=== PATIENT | male | born 1985 | race Caucasian/White ===

== ENCOUNTER 2022-04-09 23:44 | Observation (INO) | payer BC ==
[~2022-04-09] VITALS: Ht 175.3 cm; Wt 72.1 kg
[2022-04-10 00:46] LABS: HEMOGLOBIN 14.4 gm/dl (14.0-17.5); RED BLOOD COUNT 4.78 M/UL (4.20-5.50); WHITE BLOOD COUNT 9.7 K/UL (4.5-11.0)
[2022-04-10 01:25] LABS: BUN/CREATININE RATIO 8 (0-10)
[2022-04-10] MEDS ORDERED: LEVOTHYROXINE137 MCG PO (04:48)
[2022-04-10] MEDS ORDERED: NORVASC2.5 MG PO (04:49)
[2022-04-10] MEDS ORDERED: CLARITIN10 MG PO (04:50)
[2022-04-10] MEDS ORDERED: CEPHALEXIN250 MG/5 M PO (10:08)
[2022-04-10] MEDS ORDERED: DIPHENHYDRAMINE50 M1 PO (10:10)
--- NOTE | 2022-04-10 18:14 | NUR ---
PHARMACY TECHNICIAN INFUSION CALLED TO [facility] FOR AM
[2022-04-11 03:11] LABS: HEMOGLOBIN 14.5 gm/dl (14.0-17.5); RED BLOOD COUNT 4.81 M/UL (4.20-5.50)
[2022-04-11 03:50] LABS: BUN/CREATININE RATIO 8 (0-10)
[2022-04-11] MEDS ORDERED: ASPIRIN EC81 MG PO (11:37)
[2022-04-11] MEDS ORDERED: CRESTOR 10 MG T10 MG PO (11:37)
[2022-04-11] MEDS ORDERED: VALSARTAN80 MG PO (11:37)
[2022-04-11] MEDS ORDERED: LOPRESSOR 25 MG25 MG PO (11:37)
[2022-04-11] MEDS ORDERED: NITROGLYCERIN0.4 MG SL (11:40)
--- NOTE | 2022-04-11 15:22 | NUR ---
PT RETURNED FROM THE RESERVATION MANAGER AT APPROXIMATELY 1100. AIR TAKEN FORM THE CUFF ACCORDING TO PAPER REQUIREMENTS. REFER TO THE FORM IN THE CHART FOR DEYTAILED AIR REMOVAL. PT IS A7O X4 AND IN NO DISTRESS.
== END 2022-04-11 14:03 | disposition home or self-care (01) ==
LOC: ER1 23:44 → CCU 04-10 02:40 → CDU 04-10 02:40 → CCU 04-10 04:33 → M/S 04-10 14:46
PROVIDERS: Family Medicine; ADMIT Internal Medicine
DX: R07.89 Other chest pain (principal); I10 Essential (primary) hypertension; E78.5 Hyperlipidemia, unspecified; R06.02 Shortness of breath; R00.2 Palpitations; E03.9 Hypothyroidism, unspecified; Z86.16 Personal history of COVID-19
CPT/HCPCS: ECHO; 36415; 71045; 78452; 80048; 80053; 80061; 82533; 82550; 82553; 82607; 83036; 83735; 83880; 84439; 84443; 84484; 85025; 93005; 93017; 93306; 94664; 94760; 99152; 99285; A9502; C1769; C1887; C1894; G0378; J1644; J2250; J2785; J3010; Q9967

== ENCOUNTER 2022-05-16 16:12 | Emergency (ER) | payer BC ==
[~2022-05-16 16:12] MED LIST: ASPIRIN EC81 MG PO; CEPHALEXIN250 MG/5 M PO; CLARITIN10 MG PO; CRESTOR 10 MG T10 MG PO; DIPHENHYDRAMINE50 M1 PO; LEVOTHYROXINE137 MCG PO; LOPRESSOR 25 MG25 MG PO; NITROGLYCERIN0.4 MG SL; NORVASC2.5 MG PO; VALSARTAN80 MG PO
[2022-05-16 16:41] LABS: HEMOGLOBIN 13.7 gm/dl (14.0-17.5); RED BLOOD COUNT 4.62 M/UL (4.20-5.50); WHITE BLOOD COUNT 8.4 K/UL (4.5-11.0)
[2022-05-16 17:07] LABS: BUN/CREATININE RATIO 7 (0-10)
[2022-05-16] MEDS ORDERED: BUSPIRONE HCL5 MG PO (22:51)
== END 2022-05-16 23:08 | disposition home or self-care (01) ==
LOC: ER1 16:12
PROVIDERS: Student in an Organized Health Care Education/Training Program
DX: R07.89 Other chest pain (principal); R20.2 Paresthesia of skin; R51.9 Headache, unspecified; E78.5 Hyperlipidemia, unspecified; I10 Essential (primary) hypertension; Z88.0 Allergy status to penicillin
CPT/HCPCS: 70450; 71045; 80053; 82550; 82553; 83690; 84439; 84443; 84484; 85025; 93005; 99285; Q0177